=== PATIENT | female | born 1975 | race Caucasian/White ===

== ENCOUNTER 2023-08-31 14:35 | Emergency (ER) | payer OTHER, SELFPAY ==
[2023-08-31 14:39] VITALS: BP 125/72; PULSE 69; RESP 24; TEMP 36.3; O2SAT 100; BMI 20.5
--- NOTE | 2023-08-31 14:54 | CT_ITS ---
Final Report Patient: FREDERIC SIDDIQUI Facility:?[facility] [place] Patient ID:?[id number] Site Patient ID:[id number]. Site :?[id number] Study:?CT Abdomen/Pelvis STONE STUDY-08/31/2023 3:31:26 PM Ordering Physician:TRINO Final Report: INDICATION: Left flank pain.. TECHNIQUE: CT abdomen and pelvis without contrast. COMPARISON: None. FINDINGS: Limited evaluation of the intra-abdominal solid organs without IV contrast. Lower chest: Unremarkable. Liver: Normal in size and attenuation. No suspicious masses. Gallbladder and bile ducts: Small gallstones in the dependent portion of the gallbladder. No intra or extrahepatic biliary ductal dilatation. Pancreas: Unremarkable. No mass or inflammation. Spleen: Normal in size. No masses. Adrenal glands: Normal in size. No nodules. Kidneys: Cortical calcifications in the right kidney with right renal atrophy. Mild left hydronephrosis. There is a 4 millimeter stone at the left UVJ with proximal mild hydroureteronephrosis. GI tract: Unremarkable. Normal in caliber. No sign of mass or inflammation. Normal appendix. Vasculature: Abdominal aorta is normal in caliber. Lymph nodes: No lymphadenopathy. Peritoneum/Abdominal Wall: Unremarkable. No sign of mass or infiltration. No free air or significant free fluid. Pelvis: Unremarkable. No pelvic masses. Bones: Unremarkable for age. IMPRESSION: 1. 4 mm obstructing stone at the left UVJ with proximal mild hydroureteronephrosis. Please note that all CT scans at this facility use dose modulation, iterative reconstruction, and/or weight-based dosing when appropriate to reduce radiation dose to as low as reasonably achievable. Dictated by Marya Sanford MD @ 08/31/2023 4:16:59 PM (Electronic Signature)
[2023-08-31] MEDS: KETOROLAC 15 MG/ML inj IVP (15:05)
[2023-08-31] MEDS: MORPHINE 4 MG/ML INJ IVP (15:06)
--- NOTE | 2023-08-31 15:13 | ED_ITS ---
HPI - General Adult General Date Seen: 08/31/23 <Adi Cadena Last Filed: 08/31/23 16:51> Chief complaint: Flank Pain <Adi Cadena - Last Filed: 08/31/23 16:51> Stated complaint: Kidney stone <Adi Cadena - Last Filed: 08/31/23 16:51> Time Seen by Provider: 08/31/23 14:47 <Adi Cadena - Last Filed: 08/31/23 16:51> Source: patient <Adi Cadena - Last Filed: 08/31/23 16:51> Mode of arrival: ambulatory <Adi Cadena Last Filed: 08/31/23 16:51> Limitations: no limitations <Adi Cadena Last Filed: 08/31/23 16:51> History of Present Illness HPI narrative: Patient is a 48-year-old female presenting to the emergency department for left flank pain. She states symptoms started about 2 hours prior to arrival in the emergency department. She initially went to urgent care and they believe she has a kidney stone due to location of the pain and having blood in her urine. There is no signs of infection the urine according to the mid-level p oil. 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 To the that they called our hospital and spoke to me directly about it the patient is CT scanner not. I informed them to send the patient to the emergency department for a CT scan. She is a large amount of pain at this time and says it was sharp 10/10 pain that does not radiate. No history of aortic aneurysms. Does not remember any trauma or injuries to her back. Denies chest pain, shortness of breath, fevers, chills, abdominal pain, diarrhea, constipation, headache, vision changes, dysuria. <Adi Cadena DO - Last Filed: 08/31/23 16:51> Related Data Home medications: Home Medications Medication Instructions Recorded Confirmed No Known Home Medications 08/31/23 08/31/23 <Adi Cadena - Last Filed: 08/31/23 16:51> Allergies/adverse reactions: Allergies Allergy/AdvReac Type Severity Reaction Status Date / Time erythromycin base Allergy Intermediate cramping Verified 08/31/23 14:41 <Adi Cadena DO - Last Filed: 08/31/23 16:51> Review of Systems Status of ROS: Reports: 10 or more systems reviewed and unremarkable except as noted in History and below <Adi Cadena DO - Last Filed: 08/31/23 16:51> PFSH PFSH Social History: Social History Smoking Status: Never smoker Do you use any of these nicotine containing products: None Second hand tobacco smoke exposure: No How often do you have a drink containing alcohol: never How often do you have six or more drinks on one occasion: Never AUDIT-C Alcohol total score: 0 Non-prescribed substance use: denies use service: No <Adi Cadena DO - Last Filed: 08/31/23 16:51> Exam Narrative: Exam Narrative: Const: Well-nourished, Well-developed, in severe distress Eyes: PERRL, no conjunctival injection, and symmetrical lids HENT: Atraumatic external nose and ears. Moist mucous membranes. Neck: Symmetric, trachea midline, No thyromegaly. CVS: RRR, No murmurs or gallops. Peripheral pulses 2+ and equal in all extremities RESP: Unlabored respiratory effort. Clear to auscultation bilaterally. GI: Nontender/Nondistended, No rebound or guarding. Left flank tenderness MSK:Extremities w/o deformity, Normal Active ROM Skin: Warm, Dry. No rashes or lesions. Neuro: Normal Muscle tone, No focal neurological deficits. Psych: Awake, Alert, & Oriented x3. Appropriate mood and affect. <Adi Cadena DO - Last Filed: 08/31/23 16:51> Const: Vital Signs, click to edit/add: Vital Signs - 24 hr 08/31/23 14:39 Temperature 97.4 F L Pulse Rate [Pulse Oximeter] 69 Respiratory Rate 24 Blood Pressure [Ri ght Upper Arm] 125/72 Pulse Oximetry 100 Oxygen Delivery Me thod Room Air <Adi Cadena DO - Last Filed: 08/31/23 16:51> Vital Signs, click to edit/add: Vital Signs - 24 hr 08/31/23 14:39 Temperature 97.4 F L Pulse Rate [Pulse Oximeter] 69 Respiratory Rate 24 [facility] 125/72 Pulse Oximetry 100 Oxygen Delivery Me thod Room Air <Sirisha Luther MD - Last Filed: 08/31/23 19:24> Course Course ED Course: Patient signed out to me by Dr. Cadena pending transfer to a facility with Urology given renal stone obstructing solitary kidney. We were able to find a bed at [facility] and patient is accepted there. She did not require any further pain medication here. She actually said that her pain resolved although she has been to the bathroom and there is no evidence of stone passage at this time. She remained hemodynamically stable. She refused ambulance transfer, requesting that her take her. <Sirisha Luther MD - Last Filed: 08/31/23 19:24> Vital Signs Vital signs: Initial Vital Signs Temperature 97.4 F L 08/31/23 14:39 Temperature Source Temporal Artery Scan 08/31/23 14:39 Pulse Rate 69 08/31/23 14:39 Respiratory Rate 24 08/31/23 14:39 Blood Pressure 125/72 08/31/23 14:39 Blood Pressure Mean 89 08/31/23 14:39 Blood Pressure Position Sitting 08/31/23 14:39 Pulse Oximetry 100 08/31/23 14:39 Oxygen Delivery Method Room Air 08/31/23 14:39 Vital Signs Temperature 97.4 F L 08/31/23 14:39 Pulse Rate 69 08/31/23 14:39 Respiratory Rate 24 08/31/23 14:39 Blood Pressure 125/72 08/31/23 14:39 Pulse Oximetry 100 08/31/23 14:39 Oxygen Delivery Method Room Air 08/31/23 14:39 Temperature 97.4 F L 08/31/23 14:39 Pulse Rate 69 08/31/23 14:39 Respiratory Rate 24 08/31/23 14:39 Blood Pressure 125/72 08/31/23 14:39 Pulse Oximetry 100 08/31/23 14:39 Oxygen Delivery Method Room Air 08/31/23 14:39 <Adi Cadena DO - Last Filed: 08/31/23 16:51> Initial Vital Signs Temperature 97.4 F L 08/31/23 14:39 Temperature Source Temporal Artery Scan 08/31/23 14:39 Pulse Rate 69 08/31/23 14:39 Respiratory Rate 24 08/31/23 14:39 Blood Pressure 125/72 08/31/23 14:39 Blood Pressure Mean 89 08/31/23 14:39 Blood Pressure Position Sitting 08/31/23 14:39 Pulse Oximetry 100 08/31/23 14:39 Oxygen Delivery Method Room Air 08/31/23 14:39 Vital Signs Temperature 97.4 F L 08/31/23 14:39 Pulse Rate 69 08/31/23 14:39 Respiratory Rate 24 08/31/23 14:39 Blood Pressure 125/72 08/31/23 14:39 Pulse Oximetry 100 08/31/23 14:39 Oxygen Delivery Method Room Air 08/31/23 14:39 Temperature 97.4 F L 08/31/23 14:39 Pulse Rate 69 08/31/23 14:39 Respiratory Rate 24 08/31/23 14:39 Blood Pressure 125/72 08/31/23 14:39 Pulse Oximetry 100 08/31/23 14:39 Oxygen Delivery Method Room Air 08/31/23 14:39 <Sirisha Luther MD - Last Filed: 08/31/23 19:24> Medications Administered Medications: Discontinued Medications Generic Name Dose Route Start Last Admin Trade Name Freq PRN Reason Stop Dose Admin Ketorolac Tromethamine 15 mg 08/31/23 14:53 08/31/23 15:05 Ketorolac 15 Mg/Ml Inj IVP 08/31/23 14:54 15 mg ONCE ONE Administration Morphine Sulfate 4 mg 08/31/23 14:53 08/31/23 15:06 Morphine 4 Mg/Ml Inj IVP 08/31/23 14:54 4 mg ONCE ONE Administration <Adi Cadena DO - Last Filed: 08/31/23 16:51> Discontinued Medications Generic Name Dose Route Start Last Admin Trade Name Freq PRN Reason Stop Dose Admin Ketorolac Tromethamine 15 mg 08/31/23 14:53 08/31/23 15:05 Ketorolac 15 Mg/Ml Inj IVP 08/31/23 14:54 15 mg ONCE ONE Administration Morphine Sulfate 4 mg 08/31/23 14:53 08/31/23 15:06 Morphine 4 Mg/Ml Inj IVP 08/31/23 14:54 4 mg ONCE ONE Administration <Sirisha Luther MD - Last Filed: 08/31/23 19:24> Medical Decision Making MDM Narrative Medical decision making narrative: Patient is a 48-year-old female presented for left flank pain. She was sent here for concern of nephrolithiasis in a solitary kidney. Morphine and Toradol were given for pain. Symptoms are only in the and having no abdominal issues started up the IV contrast for the CT scan. She has no was factors for aortic aneurysm at this time. Muscle strain seems unlikely considering how much pain she is and at no known injuries. Patient's pain improved with the medication. I do not repeat the urine as feet ordered have a urine from earlier today showing blood in the urine but no signs of UTI. BMP returned showing no concerning abnormalities. Potassiums very mildly low at 3.4. Kidney function within normal limits. CT scan of the abdomen pelvis was ordered and done showing a 4 mm left UVJ obstructing stone with mild hydroureteronephrosis. Considering she has an atrophic right kidney I believe we would consider this a solitary kidney and do that I will consult Urology at [facility]. Currently she would be 6 wait list we will continue to call around to see if anyone would be able to accept her sooner. I did speak to Dr. Rivera of [facility]. He does state the patient will need to be transferred unlikely get a stent and stone removal tomorrow morning. Patient is agreeable to this plan. We unsure when she will have a bed available so we will continue to search for faster transfer. Patient's pain is tolerable at this time. Patient signed out to my colleague Dr. Luther pending final transfer <Adi Cadena DO - Last Filed: 08/31/23 16:51> Lab Data Labs: Lab Results 08/31/23 Range/Units 14:50 WBC 11.71 H (4.50-11.00) K/uL RBC 4.58 (4.00-5.20) m/uL Hgb 12.8 (12.0-16.0) gm/dL Hct 37.9 (33.0-51.0) % MCV 83 (80-100) fL MCH 28 (26-34) pg MCHC 34 (32-36) gm/dL RDW Coeff of Jeremie 12.4 (11.5-15.5) % Plt Count 351 (140-440) K/uL Neut % (Auto) 70.6 (42.0-72.0) % Lymph % (Auto) 23.1 (20-44) % [place] % (Auto) 4.5 (0.0-11.0) % Eos % (Auto) 0.5 (0.0-7.0) % Baso % (Auto) 0.4 (0.0-3.0) % Neut # (Auto) 8.30 H (1.7-7.0) K/uL Lymph # (Auto) 2.70 (0.90-2.90) K/uL [place] # (Auto) 0.50 (0.00-0.90) K/UL Eos # (Auto) 0.10 (0.00-0.50) K/uL Baso # (Auto) 0.00 (0.00-0.30) K/uL Abs Immat Gran (auto) 0.10 (0.00-0.30) K/uL Imm/Tot Granulo (auto) 0.9 % Sodium 135 (135-149) mmol/L Potassium 3.4 L (3.6-5.1) mmol/L Chloride 101 (96-114) mmol/L Carbon Dioxide 25 (20-32) mmol/L Anion Gap 9 (7-15) mEq/L BUN 15 (5-24) mg/dL Creatinine 0.5 (0.5-1.5) mg/dL Estimated Creat Clear 107.65 Estimated GFR 115 ml/min Glucose 103 (60-115) mg/dL Calcium 10.2 (8.4-10.6) mg/dL <Adi Cadena, DO - Last Filed: 08/31/23 16:51> Lab Results 08/31/23 Range/Units 14:50 WBC 11.71 H (4.50-11.00) K/uL RBC 4.58 (4.00-5.20) m/uL Hgb 12.8 (12.0-16.0) gm/dL Hct 37.9 (33.0-51.0) % MCV 83 (80-100) fL MCH 28 (26-34) pg MCHC 34 (32-36) gm/dL RDW Coeff of Jeremie 12.4 (11.5-15.5) % Plt Count 351 (140-440) K/uL Neut % (Auto) 70.6 (42.0-72.0) % Lymph % (Auto) 23.1 (20-44) % [place] % (Auto) 4.5 (0.0-11.0) % Eos % (Auto) 0.5 (0.0-7.0) % Baso % (Auto) 0.4 (0.0-3.0) % Neut # (Auto) 8.30 H (1.7-7.0) K/uL Lymph # (Auto) 2.70 (0.90-2.90) K/uL [place] # (Auto) 0.50 (0.00-0.90) K/UL Eos # (Auto) 0.10 (0.00-0.50) K/uL Baso # (Auto) 0.00 (0.00-0.30) K/uL Abs Immat Gran (auto) 0.10 (0.00-0.30) K/uL Imm/Tot Granulo (auto) 0.9 % Sodium 135 (135-149) mmol/L Potassium 3.4 L (3.6-5.1) mmol/L Chloride 101 (96-114) mmol/L Carbon Dioxide 25 (20-32) mmol/L Anion Gap 9 (7-15) mEq/L BUN 15 (5-24) mg/dL Creatinine 0.5 (0.5-1.5) mg/dL Estimated Creat Clear 107.65 Estimated GFR 115 ml/min Glucose 103 (60-115) mg/dL Calcium 10.2 (8.4-10.6) mg/dL <Sirisha Luther MD - Last Filed: 08/31/23 19:24> Imaging Data CT scan abdomen and pelvis: Radiologist's impression: 1. 4 mm obstructing stone at the left UVJ with proximal mild hydroureteronephrosis. Please note that all CT scans at this facility use dose modulation, iterative reconstruction, and/or weight-based dosing when appropriate to reduce radiation dose to as low as reasonably achievable. Dictated by Marya Sanford MD @ 08/31/2023 4:16:59 PM <Adi Cadena DO - Last Filed: 08/31/23 16:51> Discharge Plan Discharge Clinical Impression: Left ureteral stone, Solitary kidney <Adi Cadena DO - Last Filed: 08/31/23 16:51> Patient Disposition: Xfer Other <Adi Cadena - Last Filed: 08/31/23 16:51> Discharge Location: [facility] <Adi Cadena - Last Filed: 08/31/23 16:51> Condition: Improved <Adi Cadena - Last Filed: 08/31/23 16:51> Prescriptions: No Action No Known Home Medications <Adi Cadena DO - Last Filed: 08/31/23 16:51> Stand Alone Forms: [facility] Info Instructions <Adi Cadena DO Last Filed: 08/31/23 16:51>
[2023-08-31 15:16] LABS: Basophils Percent Auto 0.4 % (0.0-3.0); Eosinophils Percent Auto 0.5 % (0.0-7.0); Hematocrit 37.9 % (33.0-51.0); Hemoglobin* 12.8 gm/dL (12.0-16.0); Immature Granulocytes Pct Auto 0.9 %; Lymphocytes Percent Auto 23.1 % (20-44); Mean Corpuscular HGB Conc 34 gm/dL (32-36); Mean Corpuscular Hemoglobin 28 pg (26-34); Mean Corpuscular Volume 83 fL (80-100); Monocytes Percent Auto 4.5 % (0.0-11.0); Neutrophils Percent Auto 70.6 % (42.0-72.0); Platelet Count* 351 K/uL (140-440); RDW Coefficient of Variation % 12.4 % (11.5-15.5); Red Blood Count 4.58 m/uL (4.00-5.20); White Blood Count* 11.71 K/uL (4.50-11.00)
[2023-08-31 15:29] LABS: Chloride* 101 mmol/L (96-114); Potassium* 3.4 mmol/L (3.6-5.1); Sodium* 135 mmol/L (135-149)
[2023-08-31 15:30] LABS: Slide Review Reflex No
[2023-08-31 15:32] LABS: Anion Gap 9 mEq/L (7-15); Blood Urea Nitrogen* 15 mg/dL (5-24); Calcium* 10.2 mg/dL (8.4-10.6); Carbon Dioxide* 25 mmol/L (20-32); Creatinine* 0.5 mg/dL (0.5-1.5); Est. Creatinine Clearance* 107.65; Estimated Glomerular Filt Rate 115 ml/min; Glucose* 103 mg/dL (60-115)
--- NOTE | 2023-08-31 17:55 | ED.NURSE ---
Accepted to [facility] ([facility]). RN to call [phone] in about 20-30 mins to give report and get bed number.
--- NOTE | 2023-08-31 18:05 | ED.NURSE ---
Images pushed to [facility].
== END 2023-08-31 19:57 | disposition other institution (70) ==
PROVIDERS: Student in an Organized Health Care Education/Training Program; Emergency Provider Emergency Medicine; PCP Family Medicine
DX: N20.1 Calculus of ureter (principal); Q60.0 Renal agenesis, unilateral
CPT/HCPCS: 36415; 74176; 80048; 85025; 96365; 96374; 99284; 99285; J1885; J2270

== ENCOUNTER 2024-05-09 06:32 | Outpatient (CLI) | payer OTHER, SELFPAY | END 2024-05-09 06:33 | disposition home or self-care (01) | LOC: NFLDREF 06:32 | PROVIDERS: PCP Family Medicine; Visit Provider Family Medicine | DX: R30.9 Painful micturition, unspecified (principal); R35.0 Frequency of micturition; N39.0 Urinary tract infection, site not specified | CPT/HCPCS: 87086; 87186 ==

== ENCOUNTER 2024-05-30 14:05 | Outpatient (CLI) | payer OTHER, SELFPAY ==
[2024-06-02 14:52] LABS: HPV Source Cervix; HPV, High Risk by TMA Not Detected
== END 2024-05-30 14:06 | disposition home or self-care (01) ==
PROVIDERS: PCP Family Medicine; Visit Provider Registered Nurse
DX: Z01.419 Encounter for gynecological examination (general) (routine) without abnormal findings (principal); Z12.4 Encounter for screening for malignant neoplasm of cervix
CPT/HCPCS: 87624; 87625; 88141; 88142

== ENCOUNTER 2024-06-22 08:36 | Outpatient (CLI) | payer OTHER, SELFPAY | END 2024-06-22 08:37 | disposition home or self-care (01) | LOC: NFLDREF 13:45 | PROVIDERS: PCP Family Medicine; Referring Provider Family Medicine; Visit Provider Registered Nurse | DX: Z12.11 Encounter for screening for malignant neoplasm of colon (principal); Z13.220 Encounter for screening for lipoid disorders; Z13.29 Encounter for screening for other suspected endocrine disorder | CPT/HCPCS: 80061; 81528; 84443 ==